=== PATIENT | male | born 1990 | race Caucasian/White ===

== ENCOUNTER 2016-06-08 15:47 | Emergency (ER) | payer OTHER ==
[2016-06-08 15:53] VITALS: RESP 16; TEMP 98.4
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
[2016-06-08 17:23] VITALS: BP 138/80; PULSE 79; O2SAT 95
== END 2016-06-08 17:24 | disposition home or self-care (01) ==
DX: S29.9XXA Unspecified injury of thorax, initial encounter (principal); F17.200 Nicotine dependence, unspecified, uncomplicated; V49.50XA Passenger injured in collision with unspecified motor vehicles in traffic accident, initial encounter; Y92.410 Unspecified street and highway as the place of occurrence of the external cause